=== PATIENT | female | born 1985 | race Caucasian/White ===

== ENCOUNTER 2022-05-12 13:25 | Emergency (ER) | payer OTHER ==
[~2022-05-12] VITALS: Ht 162.6 cm; Wt 88.0 kg
[2022-05-12 13:27] VITALS: BP 133/77
[2022-05-12] MEDS ORDERED: ALPR0.25 PO (13:40)
[2022-05-12] MEDS ORDERED: ATOR1TAB19 PO (13:40)
[2022-05-12] MEDS ORDERED: POTA99CA2 PO (13:40)
[2022-05-12] MEDS ORDERED: KEPP10002 PO (13:40)
[2022-05-12] MEDS ORDERED: HYDR12.55 PO (13:40)
[2022-05-12] MEDS ORDERED: AMLO1TAB24 PO (13:40)
[2022-05-12] MEDS ORDERED: NAPR-837 PO (15:22)
== END 2022-05-12 15:52 | disposition home or self-care (01) ==
LOC: M ED 13:25
DX: S66.211A Strain of extensor muscle, fascia and tendon of right thumb at wrist and hand level, initial encounter (principal); X50.0XXA Overexertion from strenuous movement or load, initial encounter